=== PATIENT | male | born 1995 | race American Indian/Alaskan Native ===

== ENCOUNTER 2019-04-18 22:16 | Emergency (ER) | payer BC ==
[2019-04-18 22:22] VITALS: BP 100/58
[2019-04-18] MEDS ORDERED: AZITHROMYCIN 250 MG TAB PO STA (23:56)
[2019-04-18] MEDS ORDERED: LIDOCAINE-MPF (1%) 10 MG/1 ML VIAL 5 ML INFILTRATI ONE (23:56)
--- NOTE | 2019-04-19 00:07 | Emergency Department Report ---
ED Male HPI - General Chief complaint: Urogenital-Male Stated complaint: STD Time Seen by Provider: 04/18/19 23:39 Source: patient Mode of arrival: Ambulatory Limitations: No Limitations - History of Present Illness MD Complaint: testicle pain, penile discharge, dysuria -: Gradual, days(s) (2) Location: penis, left testicle Radiation: none Severity: mild Quality: burning Consistency: constant Worsens with: urination discharge (clear), dysuria. denies: swelling, mass, rash, urinary retention, blood in urine, fever, nausea/vomiting, incontinence - Related Data Allergies Allergy/AdvReac Type Severity Reaction Status Date / Time No Known Allergies Allergy Verified 04/18/19 22:20 ED Review of Systems ROS: Stated complaint: STD Other details as noted in HPI Comment: All other systems reviewed and negative ED Past Medical Hx - Past Medical History Previous Medical History?: No - Surgical History Past Surgical History?: No - Social History Smoking Status: Never Smoker Substance Use Type: None ED Physical Exam - General Limitations: No Limitations General appearance: alert, in no apparent distress - Head Head exam: Present: atraumatic, normocephalic - Eye Eye exam: Present: normal appearance - ENT ENT exam: Present: mucous membranes moist - Neck Neck exam: Present: normal inspection - Respiratory Respiratory exam: Present: normal lung sounds bilaterally. Absent: respiratory distress - Cardiovascular Cardiovascular Exam: Present: regular rate, normal rhythm. Absent: systolic murmur, diastolic murmur, rubs, gallop - GI/Abdominal GI/Abdominal exam: Present: soft, normal bowel sounds - Rectal Rectal exam: Present: deferred - exam: Present: normal inspection External exam: Present: normal external exam - Extremities Exam Extremities exam: Present: normal inspection - Back Exam Back exam: Present: normal inspection - Neurological Exam Neurological exam: Present: alert, oriented X3 - Psychiatric Psychiatric exam: Present: normal affect, normal mood - Skin Skin exam: Present: warm, dry, intact, normal color. Absent: rash ED Course Vital Signs 04/18/19 04/18/19 22:22 23:05 Temperature 98.3 F 98.3 F Pulse Rate 86 86 Respiratory 18 18 Rate Blood Pressure 100/58 Blood Pressure 100/58 [Right] O2 Sat by Pulse 98 100 Oximetry Critical care attestation.: If time is entered above; I have spent that time in minutes in the direct care of this critically ill patient, excluding procedure time. ED Disposition Clinical Impression: Dysuria Disposition: DC-01 TO HOME OR SELFCARE Is pt being admited?: No Does the pt Need Aspirin: No Condition: Stable Instructions: Dysuria (ED) Additional Instructions: Please follow up with the medical records department for the results of the chlamydia and gonorrhea testing you have been covered with Rocephin and Zithromax due to your symptoms which would also cover you in the event that these tests were actually positive. Referrals: [facility] [Provider Group] - 3-5 Days
== END 2019-04-19 00:25 | disposition home or self-care (01) ==
LOC: ED 22:16
DX: N50.819 Testicular pain, unspecified (principal); R30.0 Dysuria
CPT/HCPCS: 96372; 99282; J0696

== ENCOUNTER 2019-06-24 09:55 | Emergency (ER) | payer BC ==
[2019-06-24 10:02] VITALS: BP 112/61
--- NOTE | 2019-06-24 10:28 | Emergency Department Report ---
Chief Complaint: Extremity Injury, Upper Stated Complaint: RT SHOULDER INJURY/PAIN Time Seen by Provider: 06/24/19 10:26 - HPI History of Present Illness: Mr. Cavanaugh is a healthy 24-year-old male without significant past medical history presents with neck and right upper back pain. He awakened yesterday morning with the symptoms. No treatment attempted at home. No trauma. No previous history of similar pain. I performed medical screening exam. Currently he does not have a limb or life threatening emergent condition on my brief physical exam performed. Referred orthopedic surgeon as necessary. Given outpatient supportive care instructions. - Exam Vital Signs: Vital Signs 06/24/19 09:58 Temperature 97.6 F Pulse Rate 81 Respiratory 16 Rate Blood Pressure 112/61 O2 Sat by Pulse 98 Oximetry MSE screening note: Focused history and physical exam performed. Due to findings the following was ordered: ED Disposition for MSE Clinical Impression: Encounter for medical screening examination Disposition: MED SCREENING EXAM-LEFT Condition: Stable Referrals: HERNÁN BIGGS MD [Staff Physician] - as needed
== END 2019-06-24 10:34 | disposition left against medical advice (07) ==
LOC: ED 09:55
DX: M54.6 Pain in thoracic spine (principal)
CPT/HCPCS: 99282

== ENCOUNTER 2019-08-23 17:33 | Emergency (ER) | payer BC ==
--- NOTE | 2019-08-24 03:32 | Emergency Department Report ---
Chief Complaint: Urogenital-Male Stated Complaint: POSS STD Time Seen by Provider: 08/24/19 01:26 - HPI History of Present Illness: 4-year-old -[place] male patient presents requesting STD screening. He denies any penile discharge, dysuria, hematuria, urinary frequency/urgency, abdominal pain, penile lesions, testicular pain/swelling, fever/chills/sweats, or swollen/painful joints. Patient reports his girlfriend is having vaginal discharge and he wants to get checked out to be safe. - Exam Vital Signs: Vital Signs 08/23/19 19:16 Temperature 97.7 F Pulse Rate 75 Respiratory 18 Rate Blood Pressure 110/66 O2 Sat by Pulse 98 Oximetry Physical Exam: - General Limitations: No Limitations General appearance: alert, in no apparent distress - Head Head exam: Present: atraumatic, normocephalic - Eye Eye exam: Present: normal appearance - Respiratory Respiratory exam: Absent: respiratory distress - Cardiovascular Cardiovascular Exam: Present: regular rate, normal rhythm. - GI/Abdominal GI/Abdominal exam: Present: soft Absent: distended, tenderness, guarding, rebound, rigid - Extremities Exam Extremities exam: Present: full ROM, no swelling or erythema of joints noted - Neurological Exam Neurological exam: Present: alert, oriented X3 - Psychiatric Psychiatric exam: Present: normal affect, normal mood MSE screening note: Focused history and physical exam performed. Due to findings the following was ordered: ED Medical Decision Making - Medical Decision Making 24-year-old male patient presents for screening tests for STDs. Denies any symptoms at this time. His vitals are normal he is nontoxic appearing. Physical exam is normal. Recommend patient follow-up with primary care provider or an urgent care for screening STD testing. Discussed strict return precautions in detail with patient who verbalizes understanding. ED Disposition for MSE Clinical Impression: Screen for STD (sexually transmitted disease) Disposition: Z- MED SCREENING EXAM-LEFT Is pt being admited?: No Condition: Stable Referrals: NICOLETTE ROSARIO MD [Primary Care Provider] - 2-3 Days (Please follow up with your primary care doctor or an urgent care center for STD screening)
[2019-08-24 04:05] VITALS: BP 125/78
== END 2019-08-24 04:14 | disposition left against medical advice (07) ==
LOC: ED 17:33
DX: A63.8 Other specified predominantly sexually transmitted diseases (principal)
CPT/HCPCS: 99281

== ENCOUNTER 2020-04-03 02:04 | Emergency (ER) | payer SELFPAY ==
--- NOTE | 2020-04-03 03:00 | XRay Report ---
LEFT HAND 3 VIEWS INDICATION / CLINICAL INFORMATION: injury COMPARISON: None available. FINDINGS: BONES / JOINT(S): No acute fracture or subluxation. No significant arthritis. SOFT TISSUES: Soft tissue injury, pain and. No radiopaque foreign body seen in this region. Tiny radi opaque foreign body seen along the anterior aspect of the second digit at the level of the middle pha lanx distally of uncertain chronicity. ADDITIONAL FINDINGS: None. Signer Name: Jaswinder Ball MD Signed: 04/03/2020 2:56 AM Workstation Name: [id number]
[2020-04-03 07:23] VITALS: BP 116/67
[2020-04-03] MEDS ORDERED: DIPHtheria,PERTUSSIS(ACELL),TETANUS VACCINE/PF 0.5 ML VIAL IM ONE (07:31)
[2020-04-03] MEDS ORDERED: SODIUM CHLORIDE 0.9% IRR 500 ML BOTTLE IR ONE (07:31)
[2020-04-03] MEDS ORDERED: LIDOCAINE (1%) 10 MG/1 ML VIAL 20 ML MDV INFILTRATI ONE (07:31)
[2020-04-03] MEDS ORDERED: HYDROcodone/ACETAMINOPHEN 10-325MG TAB PO ONE (07:32)
[2020-04-03] MEDS ORDERED: SODIUM CHLORIDE IRRI 500 ML 500 ML IR ONE (07:32)
--- NOTE | 2020-04-03 07:45 | Emergency Department Report ---
<JAN DONG - Last Filed: 04/03/20 10:15> ED Upper Extremity Inj HPI - General Chief Complaint: Wound/Laceration Stated Complaint: LAC LF HAND Time Seen by Provider: 04/03/20 07:16 Source: patient Mode of arrival: Ambulatory Limitations: No Limitations - History of Present Illness Complaint: Injury to:: left, hand -: Sudden (this morning around 1am) Other Extremity Injury: Hand: Left Other Injuries: none Handedness: right Place: home Severity scale (0 -10): 10 Improves With: none Worsens With: movement of extremity Context: laceration (Pt states that he got mad, struck a bo jar which then hit the wall and then when it broke cut his left hand) Associated Symptoms: suspects foreign body, other (unable to move 3rd and 4th finger of left hand). denies: weakness, numbness, neck pain, nausea/vomiting, heard/felt popping sensat - Related Data Allergies Allergy/AdvReac Type Severity Reaction Status Date / Time No Known Allergies Allergy Verified 06/24/19 09:56 ED Review of Systems Comment: All other systems reviewed and negative Musculoskeletal: arthralgia Skin: other (hand laceration) ED Past Medical Hx - Past Medical History Previous Medical History?: No - Surgical History Past Surgical History?: No - Social History Smoking Status: Never Smoker Substance Use Type: Alcohol, Marijuana ED Physical Exam - General Limitations: No Limitations General appearance: alert, in distress (mild secondary to pain) - Head Head exam: Present: atraumatic, normocephalic, normal inspection - Eye Eye exam: Present: normal appearance, PERRL, EOMI Pupils: Present: normal accommodation - Respiratory Respiratory exam: Present: normal lung sounds bilaterally. Absent: respiratory distress - Cardiovascular Cardiovascular Exam: Present: regular rate, normal rhythm. Absent: systolic murmur, diastolic murmur, rubs, gallop - Expanded Upper Extremity Exam Left Hand Wrist exam: Present: tenderness, laceration, other (Pt has laceration to the center bear aspect of left hand; Measures about 3.0cm; there is ttp around lac. No apparent fb; Pt unable to flex the 3rd and 4th fingers this is concerning for tendon injury; cap refill nl, sensation intact. ). Absent: abrasion, deformity, crepidus, dislocation, erythema, nail avulsion, subungual hematoma - Neurological Exam Neurological exam: Present: alert, oriented X3, CN II-XII intact, normal gait - Psychiatric Psychiatric exam: Present: anxious, other (tearful) - Laceration /Wound Repair Left Palm Hand Wound Location: upper extremity (LEFT BEAR HAND) Wound's Depth, Shape: linear (DEEP) Wound Explored: no foreign body removed Irrigated w/ Saline (ccs): 50 Betadine Prep?: No Anesthesia: 1% Lidocaine Volume Anesthetic (ccs): 9 Wound Repaired With: sutures Suture Size/Type: 4:0 Number of Sutures: 2 Layer Closure?: No Sterile Dressing Applied?: Yes ED Medical Decision Making - Radiology Data Radiology results: image reviewed - Medical Decision Making 0840 --patient with laceration to the palmar aspect of his left hand with concern for flexor tendon injury as patient is unable to flex his third and fourth finger of his left hand. X-ray shows no acute changes or foreign bodies at the level of the laceration. 0859 --discussed case with Dr. Rajan OGDEN, hand surgeon, through [facility]; he recommended that patient need immediate evaluation and recommend that patient be transferred. In the meantime recommend that wound be closed loosely with about 2 or 3 sutures. And a nonadherent dressing. Patient will be transferred to the [facility]. X-ray report as well as plan for transfer for hand specialist evaluation discussed with patient. Patient currently stable. Patient tetanus has been updated. Dose of Ancef will be given prior to transfer. ED Disposition Clinical Impression: Laceration of hand with tendon involvement Disposition: DC/TX-70 ANOTHER TYPE HLTHCARE Is pt being admited?: No Does the pt Need Aspirin: No Condition: Stable Referrals: PRIMARY CARE, [Primary Care Provider] - 3-5 Days <NEAL HOWARD - Last Filed: 04/03/20 13:56> ED Review of Systems ROS: Stated complaint: LAC LF HAND Other details as noted in HPI ED Course Vital Signs 04/03/20 02:14 Temperature 98.6 F Pulse Rate 98 H Respiratory 18 Rate Blood Pressure 116/67 O2 Sat by Pulse 97 Oximetry ED Medical Decision Making - Medical Decision Making case was discussed with me. Plan for transfer since we do not have hand, orthopedic, or trauma coverage Critical care attestation.: If time is entered above; I have spent that time in minutes in the direct care of this critically ill patient, excluding procedure time.
[2020-04-03] MEDS ORDERED: ceFAZolin/NS 1 GM/50 ML 1 GM/50 ML BAG IV ONE (09:00)
== END 2020-04-03 10:07 | disposition other institution (70) ==
LOC: ED 02:04
DX: S61.412A Laceration without foreign body of left hand, initial encounter (principal); F12.10 Cannabis abuse, uncomplicated; W45.8XXA Other foreign body or object entering through skin, initial encounter; Y93.89 Activity, other specified; Y92.89 Other specified places as the place of occurrence of the external cause; Y99.8 Other external cause status
CPT/HCPCS: 12002; 73130; 90471; 90715; 96365; 99285; J0690